=== PATIENT | male | born 1950 | race Caucasian/White ===

== ENCOUNTER 2019-01-15 06:56 | Inpatient (IN) | payer MEDICARE, OTHER ==
[~2019-01-15] VITALS: Ht 172.7 cm; Wt 77.9 kg
[~2019-01-15 06:56] MED LIST: /AMIO20TA; /TIOT18INH; BABY81CH; HYDR10TA2; LASI40TA; NO HOME MEDS; NOVOLOG100 MG/ML; PHOSLO; [UNRECOGNIZED DRUG - CODE]
[2019-01-15] MEDS ORDERED: NS 1,000 ML IV SCH (07:30)
[2019-01-15] MEDS: METOPROLOL 5 MG/5 ML VIAL IV SCH ×3 (07:34→08:03)
[2019-01-15 07:40] LABS: BASO # 0.1 10^3/uL (0.0-0.2); BASO % 0.6 % (0.0-1.0); EOS # 0.1 10^3/uL (0.0-0.50); EOS % 1.3 % (0.0-3.0); HEMATOCRIT 44.1 % (42.0-52.0); LYMPH # 1.1 10^3/uL (1.5-4.5); LYMPH % 12.5 % (24.0-44.0); MEAN CORPUSCULAR HEMOGLOBIN 27.3 pg (27.0-33.0); MEAN CORPUSCULAR HGB CONC 31.7 g/dl (32.0-36.5); MEAN CORPUSCULAR VOLUME 86.1 fl (80.0-96.0); MONO # 0.8 10^3/uL (0.0-0.8); MONO % 9.3 % (0.0-5.0); NEUTROPHILS # 6.5 10^3/uL (1.8-7.7); NEUTROPHILS % 75.7 % (36.0-66.0); PLATELET COUNT, AUTOMATED 207 10^3/uL (150-450); RED BLOOD COUNT 5.12 10^6/uL (4.30-6.10); WHITE BLOOD COUNT 8.6 10^3/uL (4.0-10.0)
[2019-01-15] MEDS ORDERED: ISOS30TA4 PO (07:42)
[2019-01-15] MEDS ORDERED: GLIP5TAB8 PO (07:42)
[2019-01-15] MEDS ORDERED: ATOR1TAB21 PO (07:42)
[2019-01-15] MEDS ORDERED: CARV25TA PO (07:42)
--- NOTE | 2019-01-15 07:49 | REP ---
Portable chest x-ray: Single view. History: Chest pain. Comparison chest x-ray: July 16, 2008. Findings: EKG monitoring electrodes overlie the chest. Lungs are well inflated and clear. The pleural angles are sharp. Heart size is borderline unchanged. The aorta is calcific and a little tortuous. Pulmonary vasculature is not increased. No significant bony abnormality is seen. Impression: No acute disease. Electronically Signed by Alexis Boateng MD 01/15/2019 07:40 A
[2019-01-15 07:52] LABS: INR 1.23; PROTHROMBIN TIME 15.7 SECONDS (12.1-14.4)
[2019-01-15 08:14] LABS: ALBUMIN 3.9 GM/DL (3.2-5.2); BILIRUBIN,DIRECT 0.2 MG/DL (0.0-0.2); BILIRUBIN,TOTAL 0.8 MG/DL (0.2-1.0); CREATININE FOR GFR 1.99 MG/DL (0.70-1.30); FREE T4 1.45 NG/DL (0.76-1.46); GLOMERULAR FILTRATION RATE 35.4 (>42); MB/CK RELATIVE INDEX 2.73 (< OR =4); POTASSIUM SERUM 4.7 MEQ/L (3.5-5.1); THYROID STIMULATING HORMONE 5.33 uIU/ML (0.358-3.740); TOTAL PROTEIN 7.1 GM/DL (6.4-8.2); TROPONIN I 1.32 NG/ML (< 0.10)
[2019-01-15] MEDS ORDERED: NS 250 ML IV ONE (08:45)
[2019-01-15] MEDS ORDERED: DIGOXIN INJ 0.5 MG/2 ML AMP (J1160) IV STA (08:56)
[2019-01-15] MEDS ORDERED: ENOXAPARIN 100MG/1ML SYRINGE (J1650) SC ONE ×2 (09:15)
[2019-01-15] MEDS ORDERED: ASPI1TAB PO (09:20)
[2019-01-15] MEDS ORDERED: OCUVTAB PO (09:20)
[2019-01-15] MEDS ORDERED: CALC600T60 PO (09:20)
[2019-01-15] MEDS ORDERED: GLUCOSE 4 GM CHEW TABLET PO PRN (10:45)
[2019-01-15] MEDS ORDERED: GLUCAGON FOR INJ 1 MG VIAL (J1610) SC PRN (10:45)
[2019-01-15] MEDS ORDERED: DEXTROSE 50% 50 ML SYRINGE IV PRN (10:45)
--- NOTE | 2019-01-15 11:54 | HPEPDOC ---
[facility] Medical History & Physical Date of Admission Jan 15, 2019 Primary Care Physician: CHAD MCCOY M.D. Other Provider Physician Asst: Dr. Mcnamara Attending Physician: POPPY LOVETT DO History and Physical CHIEF COMPLAINT: Atrial fibrillation HISTORY OF PRESENT ILLNESS: Patient reports waking the morning of 01/11/19 with his "heart pounding". He denies any other symptoms at the time including: chest pain/pressure, nausea, vomiting, and diaphoresis. This "heart pounding" has continued through the time of his presentation this morning. He made the decision to come emergency depart ment after his symptoms failed to improve over the course of the week. He also reports that he has had a difficult time sleeping because of the symptoms. He also received reports nonspecific right upper chest pain yesterday, reproducible with palpation, aching in quality, that has since resolved. In the emergency department, an EKG was performed which showed atrial fibrillation with RVR. The patient was given normal saline, metoprolol 5 mg IV Q5M, digoxin 0.5 mg IV and anticoagulation with Lovenox 80 mg subcutaneous. Chest x-ray was negative. No elevated white count. BUN/CR of 41/1.99 and a GFR of 35. Troponin of 1.32. Patient shares that he has has not seen his primary care provider in some time. He is a poor historian in regards to his medical conditions and past medical history. Last medical record this hospital some 2007 at which time the patient was in cardiogenic shock. Records requested from patient's primary care provider Dr. Chad Mccoy and shop estimator Dr. Mcnamara were requested. During our conversation, patient was noted to be quite tangential. He did discuss how he believes his neighbors have been connecting to his television and turning it on/off and changing his channels. He also describes numerous times he has caught someone at night time talking on the cell phone and looking through his window. Patient will be admitted for further monitoring and management of his atrial fibrillation with RVR. PAST MEDICAL HISTORY: 1. History of cardiogenic shock in 2007 2. Diabetes, not on insulin 3. Eczema 4. Gout 5. Bilateral cataracts 6. Hypercholesterolemia 7. History of L patella fracture. PAST SURGICAL HISTORY: 1. Tonsillectomy as a child SOCIAL HISTORY: Marital status: Single, never Resides in: Patient lives alone in a 2 story home that he owns. 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 Prior forty-year smoking history ETOH: Patient quit alcohol use in 1989 Illicit drug use: Denies illicit drug use, including IV and marijuana Other relevant social factors: Patient uses reading glasses, and carries a cane for stability. FAMILY HISTORY: Father: , 78, CHF Mother: , 73, CHF Siblings: Brother with severe gout, right with gout ALLERGIES: No known drug allergies REVIEW OF SYSTEMS: CONSTITUTIONAL: Patient does report some difficulty sleeping this past week secondary to his heart racing. He denies fevers, chills, night sweats, fatigue, changes in weight. HEENT: Patient denies headache, changes in his hearing or sight. Patient does report a long history of bilateral cataracts and does use glasses for reading. Patient denies mouth lesions/sores, difficulty swallowing CARDIOVASCULAR: Patient reports a 5 day history of his "heart pounding ". He r eports experiencing right sided chest discomfort yesterday, tender to the touch, that has since resolved. RESPIRATORY: Patient reports dyspnea after walking a single block. He reports that his dyspnea has been progressing steadily over the last couple of years. Patient denies current shortness of breath, cough, wheezing GASTROINTESTINAL: Patient denies any nausea, vomiting, abdominal pain/cramping, changes to his stooling GENITOURINARY: Patient denies difficulty urinating, no dysuria, frequency, hesitancy SKIN: Reports a history of eczema, with a small patch of dry skin located on the patient's lower lateral left leg approximately 3 cm in diameter. MUSCULOSKELETAL: Denies muscle aches and pains. NEUROLOGICAL: Denies any focal neurologic deficits, no difficulty speaking, no numbness or tingling in his extremities, no muscle weakness or changes in sensation PSYCHIATRIC: Patient denies psychiatric history including depression and anxiety HOME MEDICATIONS: Please see below. PHYSICAL EXAMINATION: VITAL SIGNS: Temperature 97 F, pulse 155, respiratory rate 18, blood pressure 114/84, pulse oximetry 99% on room air. GENERAL APPEARANCE: Awake, alert, oriented 3, conversant, able to participate in his care, seated comfortably upright in his hospital bed HEENT: Normocephalic, atraumatic, EOMI, PERRLA, mucous membranes moist, no oral lesions, no cervical lymphadenopathy, no JVD, trachea midline CARDIOVASCULAR: Irregularly irregular rate and rhythm, no murmurs appreciated LUNGS: Clear to auscultation bilaterally, without wheezes rales or rhonchi, negative to percussion ABDOMEN: Soft, nontender, nondistended, no masses palpable EXTREMITIES: Able to move all extremities equally and bilaterally. No lower extremity edema or calf tenderness bilaterally. NEUROLOGICAL: No focal neurologic deficits, no aphasia, no weakness or alterations in sensorium. Upper and lower extremity strength 5/5. PSYCHIATRIC: Speech is of normal rate, tone and paucity. Patient does demonstrate signs of paranoia and delusions, specifically regarding his neighbors and their ability to control his television set. He also recounts having neighbors who look through his window at him in the middle of the night. Despite this however, he denies auditory or visual hallucinations or symptoms of bee. LABORATORY DATA: See below. IMAGING: CXR (01/15/19): No acute disease ED EKG (01/15/19): Atrial fibrillation with RVR ASSESSMENT: Pratik Marquez is 69 year old male, past medical history of cardiogenic shock, eczema, and gout who presents to the emergency department status post 5 days after waking in the morning with his "heart pounding". EKG performed in the ED indicated atrial fibrillation with RVR, heart rate around 150. Patient was given metoprolol and digoxin, and coagulation Lovenox. PLAN: Atrial Fibrillation with RVR: Cardiology consulted. Home medication reconciliation indicates that the patient takes carvedilol 25 mg and Isosorbide Mononitrate 30 mg. Patient follows with Dr. Mcnamara regularly. Records from his office requested. Patient received x3 Metoprolol 5mg IV Q5M and 0.5mg Digoxin IV in the ED. Metabolic causes considered; TSH of 5.3, Normal T4. Infectious stress; no elevated white count, blood cultures pending Medication causes considered;qw patient denies taking new medications Anticoagulation with Lovenox. Diabetes: Hold home Glipizide Fasting glucose of 232 in ED, has been prescribed insulin in the distant past, currently only on Glipizide, no metformin. Patient follows with PCP, Dr. Chad Mccoy. Records requested. Measure a Hemoglobin A1c Sliding scale insulin protocol Consistent carbohydrate diet Elevated troponin: Initial troponin in ED of 1.32., CK-MB of 4.0 No indication of STEMI via ED EKG Plan to trend troponin every 6 hours Hypercholesterolemia: Continue home statin Paranoia: Plan to discuss case with psychiatry pending improvement in patient's clinical condition DVT Prophylaxis: Anticoagulated with Lovenox CODE STATUS: Full code Vital Signs Vital Signs Date Time Temp Pulse Resp B/P (MAP) Pulse Ox O2 Delivery O2 Flow Rate FiO2 01/15/19 09:00 155 01/15/19 08:03 114/84 01/15/19 08:01 18 99 01/15/19 08:00 Room Air 01/15/19 07:13 97.0 Laboratory Data Labs 24H Laboratory Tests 2 01/15/19 07:30: Immature Granulocyte % (Auto) 0.6, White Blood Count 8.6, Red Blood Count 5.12, Hemoglobin 14.0, Hematocrit 44.1, Mean Corpuscular Volume 86.1, Mean Corpuscular Hemoglobin 27.3, Mean Corpuscular Hemoglobin Concent 31.7L, Red Cell Distribution Width 13.7, Platelet Count 207, Neutrophils (%) (Auto) 75.7H, Lymphocytes (%) (Auto) 12.5L, Monocytes (%) (Auto) 9.3H, Eosinophils (%) (Auto) 1.3, Basophils (%) (Auto) 0.6, Neutrophils # (Auto) 6.5, Lymphocytes # (Auto) 1.1L, Monocytes # (Auto) 0.8, Eosinophils # (Auto) 0.1, Basophils # (Auto) 0.1, Nucleated Red Blood Cells % (auto) 0.0, Prothrombin Time 15.7H, Prothromb Time International Ratio 1.23, Activated Partial Thromboplast Time 28.0, Anion Gap 9, Glomerular Filtration Rate 35.4L, Calcium Level 9.0, Aspartate Amino Transf (AST/SGOT) 41H, Alanine Aminotransferase (ALT/SGPT) 49, Alkaline Phosphatase 77, Total Bilirubin 0.8, Direct Bilirubin 0.2, Total Creatine Kinase 132, Creatine Kinase MB 4.0H, Creatine Kinase MB Relative Index 2.73, Troponin I 1.32H, YG-Tbg-O-Type Natriuretic Peptide 7781H, Total Protein 7.1, Albumin 3.9, Albumi n/Globulin Ratio 1.22, Lipase 219, Thyroid Stimulating Hormone (TSH) 5.330H, Free Thyroxine 1.45 CBC/BMP Laboratory Tests 01/15/19 07:30 Red Blood Count 5.12, Mean Corpuscular Volume 86.1, Mean Corpuscular Hemoglobin 27.3, Mean Corpuscular Hemoglobin Concent 31.7 L, Red Cell Distribution Width 13.7, Neutrophils (%) (Auto) 75.7 H, Lymphocytes (%) (Auto) 12.5 L, Monocytes (%) (Auto) 9.3 H, Eosinophils (%) (Auto) 1.3, Basophils (%) (Auto) 0.6, Neutrophils # (Auto) 6.5, Lymphocytes # (Auto) 1.1 L, Monocytes # (Auto) 0.8, Eosinophils # (Auto) 0.1, Basophils # (Auto) 0.1 Microbiology Microbiology 01/15/19 Blood Culture, Received Pending 01/15/19 Blood Culture, Received Pending Home Medications Scheduled Aspirin (Aspirin 81) 81 Mg Tab, 81 MG PO QPM Atorvastatin Calcium (Atorvastatin Calcium) 20 Mg Tab, 20 MG PO QPM Calcium Carbonate (Calcium) 600 Mg Tab, 600 MG PO QPM Carvedilol (Carvedilol) 25 Mg Tab, 25 MG PO BID Glipizide (Glipizide) 5 Mg Tab, 5 MG PO BID Isosorbide Mononitrate (Isosorbide Mononitrate ER) 30 Mg Tab, 30 MG PO QPM Multivitamins (Ocuvite) 1 Tab Tab, 1 TAB PO QPM Allergies Coded Allergies: No Known Allergies (Unverified , 06/29/08) GME ATTESTATION GME ATTESTATION My faculty preceptor for this patient encounter was physically present during the encounter and was fully available. All aspects of the patient interview, examination, medical decision making process, and medical care plan development were reviewed and approved by the faculty preceptor. The faculty preceptor is aware and concurs with the plan as stated in the body of this note and will attest to such by his/her cosignature. JOAQUIN NUNEZ DO Jan 15, 2019 11:54
[2019-01-15] MEDS: HumaLOG INSULIN (NovoLOG) PER UNIT SC SCH ×3 (12:00→20:55)
[2019-01-15 13:26] LABS: HEMOGLOBIN A1c 7.6 %
[2019-01-15 14:24] LABS: MB/CK RELATIVE INDEX 2.33 (< OR =4); TROPONIN I 1.27 NG/ML (< 0.10)
[2019-01-15 14:30] VITALS: BP 145/95
[2019-01-15 16:00] VITALS: BP 135/85
[2019-01-15] MEDS ORDERED: AMIODARONE HCL 150 MG in APPROPRIATE DILUENT 1 EA IV ONE (16:15)
[2019-01-15 17:10] VITALS: BP 111/72
--- NOTE | 2019-01-15 19:33 | ECGEPIP ---
Stationary ECG Study [facility] - ED Test Date: 2019-01-15 Pat Name: AGUSTO MCGUIRE Department: Room: - Gender: M [employer]: : 1950 Requested By: Lucy Grimm Order Number: [id number] Reading MD: Lucy Grimm Measurements Intervals [place] Rate: 153 P: ME: 0 QRS: 42 QRSD: 93 T: 94 QT: 277 QTc: 442 Interpretive Statements ATRIAL FIBRILLATION WITH RAPID VENTRICULAR RESPONSE SEPTAL MYOCARDIAL INFARCTION, PROBABLY OLD LOW QRS INTERVAL LIMG LEADS NOSPECIFIC ST T WAVE CHANGES NO OLD ECG FOR COMPARISON Electronically Signed On 01-15-2019 19:33:20 EDT by Lucy Grimm
[2019-01-15 19:58] LABS: MB/CK RELATIVE INDEX 2.43 (< OR =4); TROPONIN I 0.97 NG/ML (< 0.10)
[2019-01-15 20:00] VITALS: BP 107/65
--- NOTE | 2019-01-15 20:01 | CR ---
DATE OF CONSULTATION: DATE OF SERVICE: 01/15/2019 REFERRING PHYSICIAN: Dr. Huertas [facility] emergency room. INDICATION: Atrial fibrillation with rapid ventricular response. HISTORY OF PRESENT ILLNESS: Mr. Marquez is known to me he is a pleasant 69-year-old man who has known cardiomyopathy which is likely ischemic and history of chronic renal insufficiency with baseline creatinine around 1.3-1.5. He presented to [facility] emergency room after approximately 1 week history of tachycardia and generalized feeling of weakness and not feeling well. Eventually the symptoms were so intrusive that he decided to come for evaluation by a cab. On presentation to the ER he was found to be in atrial fibrillation with rapid ventricular response and ventricular rate approximately 140 beats per minute. He received 5 mg of IV metoprolol and a half of milligram of IV digoxin which had no significant effect on his heart rate. When I saw him in emergency room earlier today he felt that besides the sensation of tachycardia he did not have any particular symptoms. He did notice that he is more exhausted compared to his baseline his exertional tolerance has decreased but there has not been any orthopnea, PND and he did not have any chest discomfort. The patient does carry a history of cardiomyopathy, he originally presented in 2007 at which point his left ventricle ejection fraction was only about 10%. He refused invasive evaluation and was treated medically and actually has done well. It is likely that his cardiomyopathy is ischemic in nature based on ECHO appearance. His last echocardiogram in 2014 revealed left ventricular ejection fraction approximately 35-40% with evidence for anteroapical wall motion abnormality. PAST MEDICAL HISTORY: 1. Cardiomyopathy is as above. The patient refused cardiac catheterization, stress testing or ICD placement. 2. Type 2 diabetes. 3. Chronic renal insufficiency. PAST SURGICAL HISTORY: Tonsillectomy. FAMILY HISTORY: Brother has coronary artery disease and father had congestive heart failure. SOCIAL HISTORY: The patient is single. No children. He has a remote history of smoking. No alcohol use. He is retired. OUTPATIENT MEDICATIONS: Carvedilol 25 mg twice a day, glipizide 5 mg twice a day, aspirin 81 mg a day, isosorbide mononitrate 30 mg daily, atorvastatin 20 mg daily and calcium carbonate 600 mg at bedtime. ALLERGIES: No know allergies. REVIEW OF SYSTEMS: He denies any recent fever, chills, nausea or vomiting, diarrhea. No syncope or near-syncope. He has had palpitations for approximately 5-7 days. PHYSICAL EXAMINATION: Mr. Marquez is an elderly man who appears to be in no distress, comfortably sitting in ICU bed. Vital signs: This morning blood pressure was 119/74, heart rate around 145, afebrile. Saturation 99% on 2 liters of oxygen by nasal cannula. Weight is documented 77.5 kg. He was alert and oriented and appropriate. His JVP was approximately 3-4 cm above clavicle in sitting position. Lungs were relatively clear to auscultation. I did not appreciate any wheezing, crackles or rhonchi. Heart: Exam reveals somewhat muffled heart sound. No gallop and irregular tachycardia. Abdomen is nontender. There were no peripheral edema. Pulses are palpable. Neurologically he was intact. LABORATORY: CBC was normal, basic metabolic panel reveals sodium 138, potassium 4.7, BUN 41, creatinine 1.99 and glucose 232, hemoglobin A1c 7.6. Liver function was normal. His troponin was elevated at 0.32 which follow-up was 0.17 around 02:00 p.m. CK, CK-MB were negative. Albumin 3.9, TSH 5.3 and INR 1.23. ECG as per history of present illness. Chest x-ray did not reveal any convincing congestive heart failure even though I do appreciate some component of fluid redistribution. There is borderline cardiomegaly. No pleural effusions. ASSESSMENT/PLAN: Mr. Marquez is a 69-year-old man who likely has chronic ischemic cardiomyopathy with baseline left ventricle ejection fraction approximately 35-40%. He presents with atrial fibrillation with rapid ventricular response. I assume at least 5-7 days duration. It is relatively well hemodynamically tolerated. At his baseline he already takes 25 mg of carvedilol twice a day, so I do not believe we will be successful in controlling his rate with giving him an additional doses of beta blockers. I gave him half a mg digoxin which had very little effect. With LV dysfunction, Cardizem or Verapamil are relatively contraindicated and consequently I believe we will have to utilize amiodarone for rate control even though there is a potential that he may be cardioverted into sinus rhythm. I think it is unlikely and we cannot tolerate current degree of tachycardia. He received 150 mg of amiodarone in the afternoon hours after my discussion with Dr. Willingham and I suggested that he started on oral 400 mg three times day. If needed he may get additional intravenous doses to accomplish faster heart rate control. Otherwise I would continue the carvedilol that is chronically being administered. As far as the volume is concerned, I do not think he is dehydrated by I would not necessarily give him diuretics at this point. As far as the renal function is concerned, it is worse than his baseline but it is likely due to decreased cardiac input in setting of cardiomyopathy and tachycardia. The troponin elevation is very likely related to his tachycardia. He did not have any ischemic symptoms. He previously refused cardiac catheterization and ICD placement on numerous occasions. I did not address this issue with him currently but I think it is likely going to be the same answer. I do not believe he needs a second antiplatelet agent on top of his aspirin. He will need anticoagulation for atrial fibrillation. He had received single dose of Lovenox 1 mg/kg this morning but tomorrow depending on his clinical course, I would probably start him on Eliquis. His condition is certainly serious but it does not appear immediately unstable. Dr. Andrade will cover this weekend. MEREDITH
[2019-01-15] MEDS: ATORVASTATIN 20 MG TAB PO SCH (20:44)
[2019-01-15] MEDS: AMIODARONE 200 MG TAB (PACERONE) PO SCH (20:44)
[2019-01-15] MEDS: ISOSORBIDE MON. (IMDUR) 30 MG XR TAB PO SCH (20:45)
[2019-01-15] MEDS: ASPIRIN 81 MG ENTERIC TAB PO SCH (20:46)
[2019-01-15] MEDS: OCUVITE 1 TAB PO SCH (20:46)
[2019-01-15] MEDS: CARVedilol 12.5 MG TAB PO SCH (20:46)
[2019-01-15 23:59] VITALS: BP 134/85
[2019-01-16] VITALS (7 sets, daily range): BP systolic 99–133; BP diastolic 67–94
[2019-01-16 05:50] LABS: HEMATOCRIT 39.3 % (42.0-52.0); HEMOGLOBIN 12.6 g/dl (13.5-17.5); MEAN CORPUSCULAR HEMOGLOBIN 27.5 pg (27.0-33.0); MEAN CORPUSCULAR HGB CONC 32.1 g/dl (32.0-36.5); MEAN CORPUSCULAR VOLUME 85.8 fl (80.0-96.0); PLATELET COUNT, AUTOMATED 176 10^3/uL (150-450); RED BLOOD COUNT 4.58 10^6/uL (4.30-6.10); WHITE BLOOD COUNT 7.2 10^3/uL (4.0-10.0)
[2019-01-16 06:13] LABS: CALCIUM LEVEL 8.3 MG/DL (8.8-10.2); CREATININE FOR GFR 1.65 MG/DL (0.70-1.30); POTASSIUM SERUM 4.3 MEQ/L (3.5-5.1)
[2019-01-16] MEDS: HumaLOG INSULIN (NovoLOG) PER UNIT SC SCH ×4 (08:44→21:00)
[2019-01-16] MEDS: AMIODARONE 200 MG TAB (PACERONE) PO SCH ×2 (08:45→21:15)
[2019-01-16] MEDS: CARVedilol 12.5 MG TAB PO SCH ×2 (08:45→21:14)
--- NOTE | 2019-01-16 11:43 | IPNPDOC ---
Text Note Date of Service The patient was seen on 01/16/19. NOTE SUBJECTIVE: Patient was interviewed and examined in his hospital room. He was laying upright in bed, wearing his hospital gown, in no acute distress. Patient denies acute symptoms. Cardiology's recommendations were discussed in detail with the patient and patient verbalized understanding. Through our conversation, patient does admit to having a difficult time remembering to take his medications. He says he often has medication left-over at the end of the month. Mitigation strategies, such as alarms, were suggested. Patient denies chest pain or pressure. No difficulty breathing or new-onset cough. No abdominal pain, n/v. He has been urinating and stooling without dif ficulty. Rate has remained in low 100's. BP acceptable. No events via tele last evening. OBJECTIVE: VITAL SIGNS: See below EXAM: GENERAL APPEARANCE: Awake, alert, oriented 3, conversant, able to participate in his care, seated comfortably upright in his hospital bed HEENT: Normocephalic, atraumatic, EOMI, PERRLA, mucous membranes moist, no oral lesions, no cervical lymphadenopathy, no JVD, trachea midline CARDIOVASCULAR: Irregularly irregular rate and rhythm, no murmurs appreciated LUNGS: Clear to auscultation bilaterally, without wheezes rales or rhonchi ABDOMEN: Soft, nontender, nondistended, no masses palpable EXTREMITIES: Able to move all extremities equally and bilaterally. No lower extremity edema or calf tenderness bilaterally. NEUROLOGICAL: No focal neurologic deficits, no aphasia, no weakness or alterations in sensorium. Upper and lower extremity strength 5/5. PSYCHIATRIC: Mood and affect are appropriate LABORATORY DATA: See below. IMAGING: CXR (01/15/19): No acute disease ED EKG (01/15/19): Atrial fibrillation with RVR MICROBIO: Blood cultures negative after 24 hours of growth ASSESSMENT: Pratik Marquez is 69 year old male, past medical history of cardiogenic shock, eczema, and gout who presents to the emergency department status post 5 days after waking in the morning with his "heart pounding". EKG performed in the ED indicated atrial fibrillation with RVR, heart rate around 150. Patient was given metoprolol and digoxin, and coagulation Lovenox. PLAN: Atrial Fibrillation with RVR: -Atrial fibrillation presumed to be >5 days. -Cardiology consulted. Home medication reconciliation indicates that the patient takes carvedilol 25 mg and Isosorbide Mononitrate 30 mg. Patient follows with Dr. Mcnamara regularly. Baseline LVEF of 35-40%. -Patient has previously declined ICD placement or coronary catheterization. -Patient received x3 Metoprolol 5mg IV Q5M and 0.5mg Digoxin IV in the ED. -Metabolic causes considered; TSH of 5.3, Normal T4. -Infectious stress; no elevated white count, blood cultures pending -Medication causes considered;qw patient denies taking new medications -Rate yesterday afternoon found to be in the 140's, 150's. Per cardiology recommendations, patient given 150 mg amiodarone IV over 30 minutes, and initiated on PO amiodarone 400 mg TID. -Rate in low 100's this morning, blood pressure 122/86. -Continue on aspirin for antiplatelet therapy -May require anticoagulation therapy with eliquis. We will follow cardiology's recommendations. Diabetes: -Hold home Glipizide -Fasting glucose of 232 in ED, has been prescribed insulin in the distant past, currently only on Glipizide, no recent history of metformin use. -Hemoglobin A1c of 7.6, will require outpatient intervention upon discharge -Sliding scale insulin protocol -Consistent carbohydrate diet Elevated troponin: Initial troponin in ED of 1.32, subsequent Q6 values of 1.27 and 0.97, likely 2/2 to tachycardia and increased demand No indication of STEMI via ED EKG Hypercholesterolemia: Continue home statin DVT Prophylaxis: Anticoagulated with Lovenox CODE STATUS: Full code VS,Fishbone, I+O VS, Fishbone, I+O Laboratory Tests 01/16/19 05:23 Red Blood Count 4.58, Mean Corpuscular Volume 85.8, Mean Corpuscular Hemoglobin 27.5, Mean Corpuscular Hemoglobin Concent 32.1, Red Cell Distribution Width 13.9, Calcium Level 8.3 L Vital Signs Date Time Temp Pulse Resp B/P (MAP) Pulse Ox O2 Delivery O2 Flow Rate FiO2 01/16/19 08:45 101 122/86 01/16/19 08:00 97.9 17 99 01/15/19 08:00 Room Air I&O- Last 24 Hours up to 6 AM 01/16/19 06:00 Intake Total 1792.5 ml Output Total 200 ml Balance 1592.5 ml GME ATTESTATION GME ATTESTATION My faculty preceptor for this patient encounter was physically present during the encounter and was fully available. All aspects of the patient interview, examination, medical decision making process, and medical care plan development were reviewed and approved by the faculty preceptor. The faculty preceptor is aware and concurs with the plan as stated in the body of this note and will attest to such by his/her cosignature. JOAQUIN NUNEZ DO Jan 16, 2019 11:43 POPPY LOVETT DO Jan 17, 2019 17:04
--- NOTE | 2019-01-16 14:24 | ECHO ---
DATE OF SERVICE: 01/15/2019 REFERRING PROVIDER: Dr. Willingham PATIENT LOCATION: ED #17 REASON FOR ECHOCARDIOGRAM: Atrial fibrillation. 2D MEASUREMENTS: IVS: 0.8 cm LV: 5.6 cm LVPW: 0.9 cm LA: 3.8 cm Aorta: 3.0 cm IVC: 2.3 cm DOPPLER MEASUREMENTS: Peak velocity across the aortic valve: 0.85 m/s Peak velocity across the LVOT: 0.73 m/s Mitral E: 0.93 Maximum tricuspid valve velocity: 2.8 m/s 2D COMMENTS: 1. Normal left ventricular wall thickness with a mildly enlarged left ventricle and a markedly depressed global left ventricular systolic function. There was diffuse hypokinesis but the anterior apical septum seems to be more hypokinetic. The estimated global left ventricular systolic ejection fraction is 25-30%. 2. Subjectively, both the left atrium and the right atrium appeared to be mildly enlarged. Normal right ventricle. 3. The atrial septum appeared to be normal without evidence of defect or shunt. 4. Normal aortic root. 5. Trace to small pericardial effusion noted mainly posteriorly in limited views. No evidence of cardiac tamponade. 6. Mildly calcified aortic valve with normal leaflet excursion. Normal mitral valve, tricuspid valve. The pulmonic valve and proximal pulmonary artery branches were not well visualized. 7. The inferior vena cava was mildly enlarged, central venous pressure might be elevated. Doppler, it detects mild mitral regurgitation, mild tricuspid regurgitation. The calculated pulmonary artery systolic pressure varied between 30 to 40 mmHg. Assessment of the left ventricular diastolic function was limited in view of the underlying atrial fibrillation. IMPRESSION: 1. Severe global left ventricular systolic dysfunction with regional wall motion abnormalities noted that may be related to underlying coronary artery disease. Assessment of the left ventricular diastolic function was limited in view of the cardiac arrhythmia, atrial fibrillation. 2. Aortic valve sclerosis without stenosis or aortic regurgitation. 3. Mild mitral regurgitation. Subjectively, the left atrium appeared to be mildly enlarged. 4. Mild tricuspid regurgitation with mild pulmonary hypertension. 5. The inferior vena cava was mildly enlarged, central venous pressure might be elevated. 6. Patient during the test was in atrial fibrillation.
--- NOTE | 2019-01-16 15:21 | IPN ---
DATE: 01/16/2019 Mr. Pratik Marquez was seen earlier today. He was laying supine in bed in no acute distress at rest. He was initially brought to the emergency room (ER) yesterday and was seen by his primary continuous wave operator, Dr. Mcnamara. He was in atrial fibrillation with a rapid ventricular rate. He was started with antiarrhythmic drugs and also received intravenous (IV) beta bethany. His heart rate seems to be under fair control, around 100 beats per minute. He denies any chest pain, shortness of breath, palpitations, and no pedal edema noted on physical examination. There was no orthopnea when I saw him. He stated that he wants to go home. He denies any bleeding. On physical examination, the patient is alert and oriented, in no acute distress at rest and his vital signs when I saw him earlier today revealed a blood pressure of 122/86 with a pulse of 101, respirations 18 to 20 and his maximum temperature is 97.9 degrees Fahrenheit with an oxygen saturation of 99% on room air. Examination of the head: Atraumatic. Neck is supple. No jugular venous distention (JVD) appreciated. The lungs did not reveal any wheezing or crackles. The heart examination revealed an irregular heart sound without gallops. The point of maximum impulse (PMI) is displaced inferiorly and laterally. There is no rub. I could not appreciate any murmurs. Abdomen is soft and nontender. Bowel sounds are active. Extremities reveal no pedal edema. Neurologic examination grossly is negative for focal deficit. LABORATORY: BMP done today revealed a sodium of 140, potassium 4.3, chloride 107, CO2 24, BUN 35, creatinine 1.65, GFR 44.0, fasting glucose 151, and calcium 8.3. CBC revealed a WBC of 7.2, hemoglobin 12.6, hematocrit 39.3, and platelets 176,000. PT on admission was 15.7 with an INR of 1.23 and APTT of 28.0. Telemetry was reviewed and revealed atrial fibrillation with a fairly controlled ventricular rate. Chest x-ray on admission, 01/15/2019, revealed no acute disease process. IMPRESSION: 1. Atrial fibrillation, under fair control and currently on atrioventricular (AV) blocking agent with carvedilol and amiodarone. He will continue current medications, but I have decreased the amiodarone to 400 mg by mouth twice a day. He will be started on anticoagulation therapy with Eliquis, and this was discussed with him; he is in agreement. We will continue telemetry, and I will monitor him along with you. He appears to be stable. Will see how he does in the next 24-48 hours. 2. Cardiomyopathy, and his echocardiogram done yesterday revealed a markedly depressed global left ventricular systolic function. At one point, we may need to trial him on one of the angiotensin-converting enzyme (JUAN) inhibitors. It seems that his kidney function has improved. In the meantime, will continue with the beta bethany, and he is also on amiodarone and long-acting nitrate. There is no need for any diuretics at the present time; it does not seem that he is retaining any fluids. 3. History of diabetes mellitus. This is being addressed. 4. History of chronic kidney disease. This seems to have improved. As mentioned above, he might benefit from either a trial of JUAN inhibitor or ARB if not done in the past. I will discuss that with Dr. Mcnamara when he comes back. It was a pleasure to participate in the care of Mr. Pratik Marquez for his underlying cardiac condition. I will continue to monitor him along with you. He does have some abnormal serum troponins leaks, probably ischemic in nature in view of his history of ischemic cardiomyopathy. At one point, he had refused any further evaluation for that problem.
[2019-01-16] MEDS: APIXABAN 5 MG TAB (ELIQUIS) PO SCH (21:14)
[2019-01-16] MEDS: OCUVITE 1 TAB PO SCH (21:15)
[2019-01-16] MEDS: ASPIRIN 81 MG ENTERIC TAB PO SCH (21:15)
[2019-01-16] MEDS: ATORVASTATIN 20 MG TAB PO SCH (21:15)
[2019-01-16] MEDS: ISOSORBIDE MON. (IMDUR) 30 MG XR TAB PO SCH (21:16)
[2019-01-17] VITALS (7 sets, daily range): BP systolic 105–135; BP diastolic 60–87
[2019-01-17 05:40] LABS: HEMATOCRIT 37.5 % (42.0-52.0); MEAN CORPUSCULAR HEMOGLOBIN 27.5 pg (27.0-33.0); PLATELET COUNT, AUTOMATED 168 10^3/uL (150-450); RED BLOOD COUNT 4.36 10^6/uL (4.30-6.10); WHITE BLOOD COUNT 6.6 10^3/uL (4.0-10.0)
[2019-01-17 06:04] LABS: CREATININE FOR GFR 1.56 MG/DL (0.70-1.30); GLOMERULAR FILTRATION RATE 46.9 (>42); POTASSIUM SERUM 4.5 MEQ/L (3.5-5.1)
[2019-01-17] MEDS: AMIODARONE 200 MG TAB (PACERONE) PO SCH ×2 (08:29→20:31)
[2019-01-17] MEDS: CARVedilol 12.5 MG TAB PO SCH ×2 (08:29→20:32)
[2019-01-17] MEDS: APIXABAN 5 MG TAB (ELIQUIS) PO SCH ×2 (08:29→20:33)
[2019-01-17] MEDS: HumaLOG INSULIN (NovoLOG) PER UNIT SC SCH ×4 (08:29→20:37)
[2019-01-17] MEDS ORDERED: FLUBLOK(EGG FREE)(QUAD)INFLUENZA VACC 0.5ML SYRINGE (90682)18YRS&OLDER IM ONE (09:00)
[2019-01-17] MEDS ORDERED: DIGOXIN INJ 0.5 MG/2 ML AMP (J1160) IV ONE (10:15)
[2019-01-17] MEDS: OCUVITE 1 TAB PO SCH (20:31)
[2019-01-17] MEDS: ASPIRIN 81 MG ENTERIC TAB PO SCH (20:33)
[2019-01-17] MEDS: ISOSORBIDE MON. (IMDUR) 30 MG XR TAB PO SCH (20:34)
[2019-01-17] MEDS: ATORVASTATIN 20 MG TAB PO SCH (20:37)
[2019-01-18 04:00] VITALS: BP 132/100
--- NOTE | 2019-01-18 05:37 | IPN ---
DATE OF VISIT: 01/17/2019 SUBJECTIVE: The patient is seen and examined in the room today. The patient denies any palpitations during the encounter. The patient denies any chest pain or shortness of breath. The patient denies any fever or chills. OBJECTIVE: VITAL SIGNS: Temperature 97.7, pulse 104, respirations 18, blood pressure 118/81, pulse ox 99% on room air. GENERAL: Noir signs of acute distress. The patient is alert and awake and is oriented. HEENT: Normocephalic, atraumatic. Extraocular movements grossly intact. CARDIOVASCULAR: Positive S1, S2, irregularly, irregular. Tachycardic. LUNGS: Clear to auscultation bilaterally. ABDOMEN: Soft, nontender, nondistended. Bowel sounds present. EXTREMITIES: No edema. LABORATORY DATA: WBC 6.6, hemoglobin 12, hematocrit 37.5, platelet count 168. Sodium 140, potassium 4.5, chloride 109, carbon dioxide 23, BUN 32, creatinine 1.56, GFR 46.9, fasting glucose 169, calcium 8. Microbiology: Blood cultures preliminary results show no growth up to 48 hours. ASSESSMENT: 1. Atrial fibrillation. The patient is currently on carvedilol and amiodarone. The amiodarone dose is being adjusted. The patient is on Eliquis. Cardiology is consulted. The patient is continued on cardiac telemetry. 2. Acute on chronic renal insufficiency. On admission the patient had a creatinine of 1.99. The patient is being treated for cardiac arrhythmia, will watch the patient's fluid status. The patient's creatinine is 1.56. 3. Elevated troponin. Suspect this is secondary to patient's cardiac arrhythmia. Previously the patient had refused cardiac catheterization. I re-addressed the possibility for this in the future. The patient stated she required some time to consider this recommendation. 4. Systolic and diastolic congestive heart failure. Echocardiogram was performed on January 15, 2019. The patient was found to have an ejection fraction around 25 to 30%. No clinical sign of fluid overload, continue to monitor. 5. Diabetes. A1c of 7.6, on insulin sliding scale. On consistent carbohydrate diet. 6. Hypercholesterolemia on statin. Deep venous thrombosis (DVT) prophylaxis. The patient is on Eliquis.
[2019-01-18 05:44] LABS: HEMOGLOBIN 12.8 g/dl (13.5-17.5); MEAN CORPUSCULAR HEMOGLOBIN 28.1 pg (27.0-33.0); MEAN CORPUSCULAR VOLUME 87.7 fl (80.0-96.0); PLATELET COUNT, AUTOMATED 174 10^3/uL (150-450); RED BLOOD COUNT 4.56 10^6/uL (4.30-6.10)
[2019-01-18 06:05] LABS: CALCIUM LEVEL 8.4 MG/DL (8.8-10.2); CREATININE FOR GFR 1.47 MG/DL (0.70-1.30); GLOMERULAR FILTRATION RATE 50.3 (>42); POTASSIUM SERUM 4.7 MEQ/L (3.5-5.1)
--- NOTE | 2019-01-18 07:54 | IPN ---
DATE: 01/17/2019 Mr. Pratik Marquez was seen early in the morning. He was supine in bed in no acute distress. He denies any chest pain, shortness of breath, palpitations. He has no orthopnea. Earlier today, his heart rate was going fast but when I saw him it was about 80-90 beats per minute. There is no report of bleeding. He has been ambulating in the room. He has no focal manifestation. PHYSICAL EXAMINATION: The patient is alert and oriented, in no acute distress and his vital signs when I saw him revealed a blood pressure 118/81 with a pulse earlier today of 118 beats per minute, respiration 18, maximum temperature 98.4 degrees Fahrenheit degrees with an oxygen saturation of 93-99% on room air. Examination of the head: Atraumatic. Neck is supple. No JVD appreciated. The lungs are clear bilaterally without any wheezing or crackles. The heart examination revealing irregular heart, rubs, gallops. The PMI is slightly displaced inferiorly and laterally. There is no rub. Abdomen is soft and nontender. Extremities no pedal edema. Neurologic examination is negative for focal deficits. LABS: CBC revealed a WBC 6.6, hemoglobin 12.0, hematocrit 37.5 and platelets 168,000, BMP revealed a sodium of 140, potassium 4.5, chloride 109, CO2 23, BUN 32, creatinine 1.56, GFR 46.9, fasting glucose 169, and calcium 8.0. Telemetry revealed atrial fibrillation and most of the time he is under control. IMPRESSION 1. Atrial fibrillation, newly diagnosis and under fair control of the current AV blocking agent with Carvedilol. He is also on amiodarone. His heart rate was mildly elevated earlier today and I had given him a dose of Digoxin 10.25 mg IV. He will be monitored. If needed, we will give him another dose later in the day. He is on Eliquis for prevent of thromboembolic events. He will continue the same. 2. Cardiomyopathy with a marked depressed global left ventricular systolic function and a region wall motion abnormalities consistent with ischemic cardiomyopathy. He is well compensated. If no contraindication, at one point we should try to challenge him with a small dose of one of the JUAN inhibitor or ARB. We will leave that to Dr. Mcnamara who will be seeing him in the morning. 3. History of diabetes mellitus, being addressed. 4. Chronic kidney disease and this improving.
[2019-01-18 08:00] VITALS: BP 140/102
[2019-01-18] MEDS ORDERED: AMIO200T PO (08:23)
[2019-01-18] MEDS: HumaLOG INSULIN (NovoLOG) PER UNIT SC SCH (08:25)
[2019-01-18] MEDS: AMIODARONE 200 MG TAB (PACERONE) PO SCH (08:25)
[2019-01-18 08:26] VITALS: BP 140/102
[2019-01-18] MEDS: CARVedilol 12.5 MG TAB PO SCH (08:26)
--- NOTE | 2019-01-18 08:46 | IPN ---
DATE: 01/18/2019 Mr. Marquez since Friday got a lot better. With the effect of amiodarone, his heart rate has slowed down nicely and he is typically in 90s for most of today. There was no extreme bradycardia neither extremely fast heart rate. I did not find any evidence for ventricular tachycardia when I reviewed his telemetry tracing. He denies any chest discomfort other than mild soreness in the right upper chest. No significant dyspnea. Overall he acknowledges substantial improvement. VITAL SIGNS: Blood pressure 132/100, heart rate documented this morning 103, afebrile. Saturation 98% on room air. Fluid balance has been roughly 700 mL negative yesterday. Weight is documented 77.9 kg, which is essentially unchanged since admission. He is alert and oriented appropriate. His jugular venous pulse (JVP) is not high. No carotid bruit. Lungs are remarkably clear. No wheezing, crackles or rhonchi are noted. Heart rate reveals irregular tachycardia. I do not appreciate any murmur or gallop. Abdomen is soft, nontender. There is no peripheral edema. Peripheral pulses are palpable. Neurologically he is intact. LABORATORY: Basic metabolic panel: Sodium 140, potassium 4.7, BUN 26, creatinine 1.5 for GFR 50 and glucose 167. CBC: hemoglobin 12.9, hematocrit 40, platelet count 174. ASSESSMENT/PLAN: Mr. Marquez is a 69-year-old man who has known probably ischemic cardiomyopathy with baseline left ventricle ejection fraction around 30-35%, chronic renal insufficiency and type 2 diabetes. He presented with atrial fibrillation with rapid ventricular rate (RPR) of at least several days duration. Because he was already on maximum dose of carvedilol and digoxin did not seem to make any difference with his heart rate, he was started on amiodarone even though the duration of the atrial fibrillation is more than 48 hours. It led to slowing down of his heart rate. When I entered the room, I assume that the patient will be leaving home today because in the past, he consistently was refusing possibility of heart catheterization or ICD placement. Today to my surprise, he mentions that Dr. Andrade talked to him about possibility of heart catheterization and he will be open to it. That led to very long discussion lasting 20 minutes, discussing the rationale and possible outcomes he is open to proceeding that route. Consequently, I will arrange for transferring him to [facility] in [place], contact interventional cardiology and will attempt to accomplish that today. Because he has on apixaban, we will hold his morning dose and he probably will be ready for the procedure tomorrow.
--- NOTE | 2019-01-18 18:36 | DSES ---
DATE OF ADMISSION: 01/15/2019 DATE OF TRANSFER/DISCHARGE: 01/18/2019 ACCEPTING FACILITY: [facility] CONSULTANTS: Cardiology DISCHARGE DIAGNOSES: 1. Atrial fibrillation. 2. Elevated troponin. 3. Acute on chronic renal insufficiency. 4. Systolic and diastolic congestive heart failure. 5. Diabetes. 6. Hypercholesterolemia. HOSPITALIZATION COURSE: Patient is a 69-year-old gentleman who presented to [facility] on 01/15/2019 with complaint of heart palpitations. Patient was found to have atrial fibrillation with rapid ventricular response (RVR) and elevated troponin. Patient received heart rate medication in the emergency room. Patient is admitted under hospitalist service. Cardiology is consulted. Initially, patient refused cardiac catheterization multiple times and we continued to pursue medical management. Patient's heart rate medication was adjusted with cardiology's assistance. Later, echocardiogram came back showing patient has significant systolic and diastolic dysfunction. Risks and benefits of cardiac catheterization was discussed with the patient multiple times during hospitalization. On 01/18/2019, patient has decided to pursue further diagnostic workup for his cardiac condition and transfer arrangements were made and patient is transferred to [facility] for further evaluation. OBJECTIVE: VITAL SIGNS: Temperature 98.3, pulse 119, blood pressure 140/102, pulse oximetry 98% in room air. LABORATORY DATA: WBC 7, hemoglobin 12.8, hematocrit 40, platelet count 174, sodium 140, potassium 4.7, chloride 108, carbon dioxide 26, BUN 26, creatinine 1.47, GFR is 50.3, fasting glucose 167, calcium 8.4. Microbiology: Blood cultures showed no growth after 72 hours times two sets. IMAGING STUDIES: Chest x-ray showed no acute disease. Echocardiogram showed ejection fraction (EF) of 25-30%. DISCHARGE MEDICATIONS: - amiodarone 400 mg by mouth twice a day - aspirin 81 mg by mouth every evening - atorvastatin 20 mg by mouth every evening - calcium 600 mg by mouth every evening - carvedilol 25 mg by mouth twice a day - glipizide 5 mg by mouth twice a day - isosorbide mononitrate 30 mg by mouth every evening - multivitamin one tablet by mouth every evening DISCHARGE INSTRUCTIONS: Patient was transferred to [facility] to proceed with cardiac catheterization. Recommend followup with primary care provider and cardiology after discharge. DISCHARGE CONDITION: Guarded. DISCHARGE TIME: Greater than 30 minutes including coordinating all transfer.
== END 2019-01-18 09:41 | disposition short-term general hospital (02) | DRG 309 ==
LOC: EDBD 06:56 → M ED 06:56 → M ED INP 10:25 → M PCU 14:35
PROVIDERS: ADMIT Internal Medicine; ATTEND Internal Medicine
DX: I48.91 Unspecified atrial fibrillation (principal); I50.42 Chronic combined systolic (congestive) and diastolic (congestive) heart failure; I25.5 Ischemic cardiomyopathy; E11.9 Type 2 diabetes mellitus without complications; E78.00 Pure hypercholesterolemia, unspecified; Z79.899 Other long term (current) drug therapy; M10.9 Gout, unspecified

== ENCOUNTER → 2023-02-14 | Outpatient (REF) | payer MEDICARE, OTHER ==
[~2023-02-14] MED LIST changes: -/AMIO20TA; -/TIOT18INH; +AMIO1TAB; +AMIO200T49 PO; +ASPI81TA26 PO; +ATOR1TAB21 PO; +CALC600T60 PO; +CARV25TA PO; +GLIP5TAB8 PO; +ISOS1TAB35 PO; +OCUVTAB PO; +SPIR1CAP
== END ==
LOC: M LAB REF 12:20
PROVIDERS: ATTEND Family Medicine
DX: I48.0 Paroxysmal atrial fibrillation (principal); I50.22 Chronic systolic (congestive) heart failure

== ENCOUNTER → 2023-08-20 | Outpatient (REF) | payer OTHER ==
[~2023-08-20] MED LIST changes: +GLIP5TAB17 PO; -GLIP5TAB8 PO
== END ==
LOC: M LAB REF 12:13
PROVIDERS: ATTEND Family Medicine
DX: I48.0 Paroxysmal atrial fibrillation (principal); I50.22 Chronic systolic (congestive) heart failure

== ENCOUNTER → 2023-08-25 | Outpatient (REF) | payer OTHER | LOC: M LAB REF 16:12 | PROVIDERS: ATTEND Family Medicine | DX: E07.9 Disorder of thyroid, unspecified (principal) ==